=== PATIENT | female | born 1950 | race Caucasian/White ===

== ENCOUNTER → 2021-08-17 13:40 | Outpatient (CLI) | payer MEDICARE, BC, SELFPAY ==
--- NOTE | 2021-08-17 | DI.CT.S_ITS ---
PROCEDURE: CT SINUS SCREEN WO CON INDICATIONS: Chronic pansinusitis TECHNIQUE: Noncontrast 3.0 mm axial images acquired from the frontal sinuses to the mid-sella, with coronal and sagittal reformats. For radiation dose reduction, the following was used: automated exposure control, adjustment of mA and/or kV according to patient size. COMPARISON: None. FINDINGS: Image quality: Excellent. Sinuses: Sinuses are clear. No mucocele/mucous retention cysts or fluid levels. Ostiomeatal Complexes: Ostiomeatal complexes are patent. No Janet cells. Miscellaneous: Visualized intra-orbital contents are normal. There is aeration of the vertical marlon of the left middle turbinate. Paradoxical left middle turbinate is also noted. Prominent leftward nasal septal deviation. IMPRESSION: Sinuses are clear. Dictated by: Gladis Vazquez M.D. on 08/17/2021 at 15:38 Approved by: Gladis Vazquez M.D. on 08/17/2021 at 16:31
== END ==
PROVIDERS: PCP Student in an Organized Health Care Education/Training Program; Referring Provider Otolaryngology; Visit Provider Otolaryngology
DX: J32.4 Chronic pansinusitis (principal)
CPT/HCPCS: 70486

== ENCOUNTER → 2023-07-15 15:41 | Outpatient (CLI) | payer MEDICARE, BC, SELFPAY ==
--- NOTE | 2023-07-15 | DI.MRI.S_ITS ---
PROCEDURE: MR HAND LT WO CON INDICATIONS: PAIN IN LEFT THUMB TECHNIQUE: Noncontrast oblique coronal T1 spin echo and T2 fast spin echo with fat saturation, axial and sagittal T2 fast spin echo with fat saturation, through the thumb. COMPARISON: [facility] [place], CR, XR HAND 3+ VIEWS LEFT, 07/11/2023, 9:12. [facility], CR, XR HAND 3+ VIEWS LEFT, 06/24/2023, 14:02. FINDINGS: Image quality: Excellent. Bones: There is significant marrow edema involving volar aspect of 1st metacarpal head and distal shaft. Marrow edema is noted throughout 1st proximal phalanx and involving dorsal aspect of 5th distal phalangeal base. There is suggestion of avulsion fracture involving ulnar aspect of 1st proximal phalangeal base. Slight dorsal subluxation at 1st MCP joint is noted. No other fracture or dislocation is seen. Significant soft tissue swelling surrounding 1st MCP joint and interphalangeal joint is seen. Osteoarthritic changes are noted throughout left thumb. Soft tissue swelling and edema surrounding mid to distal portion of left thumb is seen. No drainable fluid collection. First carpometacarpal joint: On sagittal images, the dorsal radial ligament and posterior oblique ligament appear intact. The intermetacarpal ligament between the 1st and 2nd metacarpal bases also appears intact. On the volar aspect, the deep and superficial layers of the anterior oblique ligament appear thickened. First metacarpophalangeal joint: The proper and accessory components of the radial collateral ligament appears markedly thickened with intrasubstance T2 hyperintense signal along with overlying fibers of the abductor pollicis brevis tendon. There is suggestion of ruptured ulnar collateral ligament at its distal insertion with adjacent fluid and edema. The torn ligament is seen oriented away from the 1st MCP joint and extending over the aponeurosis of adductor pollicis muscle suggestive of a Stener lesion. There is suggestion of volar plate tear near its proximal insertion. Thenar muscles: Significant edema involving the thenar muscles is seen suggestive of muscle strain/partial-thickness tear. Flexor pollicis longus tendon: Tendon fibers appear intact, coursing between the thenar eminence muscles and the adductor pollicis muscle, and inserting on the volar base of the distal phalanx. The first annular danita at the level of the first MCP joint appears intact, intimate with the sesamoids. The second annular danita at the level of interphalangeal joint also appears intact. The oblique annular danita between the 1st and 2nd annular pulleys appears intact, with ulnar proximal attachment intimate with the adductor aponeurosis. The variable annular danita also appears intact between the first annular and oblique annular pulleys. Extensor tendons: The extensor pollicis brevis tendon appears intact, coursing radial to the extensor pollicis longus tendon and inserting on the dorsal base of the proximal phalanx, blending with the dorsal plate of the first MCP joint. The extensor pollicis longus tendon appears intact as it inserts on the dorsal base of the distal phalanx. The sagittal band at the level of the first MCP joint appears intact. The abductor pollicis longus tendon slips appear intact at the radial aspect of the proximal phalanx, proximal to the abductor pollicis brevis tendon insertion. Miscellaneous: No ganglion cysts. IMPRESSION: 1. Suggestion of acute avulsion injury involving ulnar aspect of 1st proximal phalangeal base with surrounding edema. Bony contusion is noted involving 1st interphalangeal joint and 1st metacarpal head without definite fracture line. Slight dorsal subluxation at 1st MCP joint is noted. Soft tissue swelling and edema throughout left thumb particularly adjacent to 1st MCP joint. 2. Suggestion of ruptured ulnar collateral ligament of 1st MCP joint at its distal insertion with medially oriented torn UCL fibers external to aponeurosis of adductor pollicis muscle concerning for Stener lesion. 3. Low-grade sprain/partial-thickness tear involving radial collateral ligaments of 1st MCP joint. There is also suggestion of torn volar plate of 1st MCP joint at its proximal insertion. 4. [id number] thenar muscles edema suggestive of muscle strain/partial-thickness tear. Dictated by: Bryce Cuadra M.D. on 07/17/2023 at 9:48 Approved by: Bryce Cuadra M.D. on 07/17/2023 at 11:08
== END ==
PROVIDERS: PCP Student in an Organized Health Care Education/Training Program; Referring Provider Orthopaedic Surgery; Visit Provider Orthopaedic Surgery
DX: M79.645 Pain in left finger(s) (principal); S60.012A Contusion of left thumb without damage to nail, initial encounter; S63.112A Subluxation of metacarpophalangeal joint of left thumb, initial encounter; S63.642A Sprain of metacarpophalangeal joint of left thumb, initial encounter; M25.442 Effusion, left hand
CPT/HCPCS: 73218

== ENCOUNTER → 2024-06-05 | Outpatient (CLI) | payer MEDICARE, BC, SELFPAY ==
--- NOTE | 2024-06-05 14:34 | DI.ECHO.S_ITS ---
[facility]+ [facility] : : [address] : : [place] : : [id number] : : Phone: [phone] Echocardiogram Report + + :Name: MAGDALENE ZHENG Study Date: 06/05/2024 Height: 65 in : :[facility] ReadingLocation: Weight: 168 lb : : Gender: Female BSA: 1.8 m2 : :: 1950 Age: 73 yrs BP: 135/84 mmHg: :Reason For Study: DYPSNEA ON EXERTION : :Ordering Physician: CARA CUADRA Performed By: Chintan Lala : :Referring: CARA CUADRA : + + Interpretation Summary 1. The left ventricular contractility is normal. Estimate ejection fraction is greater than 55% with no segmental wall motion abnormalities. Mild concentric LVH. Grade 1 diastolic dysfunction. 2. The right ventricular contractility is normal. 3. All cardiac chambers are of normal size. 4. No significant valvular abnormalities noted. 5. No obvious intracardiac shunts. 6. No obvious intracardiac masses nor thrombi. 7. No hemodynamically significant pericardial effusion. 8. Low right-sided filling pressures. Conclusion: Normal biventricular systolic function with no significant valvular abnormalities. Procedure: A two-dimensional transthoracic echocardiogram with color flow and Doppler was performed. The study quality was technically adequate. There is no prior echocardiogram noted for this patient. The patient was in atrial fibrillation with heart rates between 65-98 bpm during the exam. Left Ventricle: The left ventricle is normal in size. The ejection fraction is estimated to be 55-60%. Right Ventricle: The right ventricle is normal size. The right ventricular systolic function is normal. Atria: The left atrial size is normal. Right atrial size is normal. The interatrial septum grossly appears intact with no obvious evidence for an atrial septal defect. Mitral Valve: The mitral valve is normal. There is no mitral valve stenosis. There is trace mitral regurgitation. Aortic Valve: The aortic valve is trileaflet. There is no aortic valve stenosis. There is trace aortic regurgitation. Tricuspid Valve: The tricuspid valve is normal. There is no tricuspid stenosis. There is a trace or physiologic amount of tricuspid regurgitation. Pulmonic Valve: The pulmonic valve is not well visualized. There is no pulmonic valvular stenosis. There is no pulmonic valvular regurgitation. Great Vessels: The aortic root is normal size. The dimensions of the ascending aorta are normal. The IVC is of normal diameter and collapses greater than 50% with a sniff. This suggests a low right atrial pressure of 3 mm Hg. Pericardium/ Pleura There is no pericardial effusion. There is no pleural effusion. MMode/2D Measurements & Calculations LVIDd: 4.7 cm LVOT diam: 2.2 cm LVIDs: 3.5 cm Ao root diam: 3.3 cm FS: 25.6 % asc Aorta Diam: 3.6 cm IVSd: 1.2 cm Ao Arch Diam (Prox Trans): 2.2 cm LVPWd: 1.1 cm LV leigh. diameter/BSA (cm/m^2): 2.5 LV sys. diameter/BSA (cm/m^2): 1.9 LA A2 area: 18.1 cm2 RA long axis: 4.7 cm LA A4 area: 16.4 cm2 RA area: 14.9 cm2 LA length (vol): 5.3 cm RA vol: 40.2 ml LA vol: 47.9 ml RA : 21.9 ml/m2 LA vol index: 26.1 ml/m2 IVC diam: 1.7 cm RVD1 (basal): 3.0 cm RVD2 (mid): 2.6 cm TAPSE: 2.4 cm Doppler Measurements & Calculations Ao V2 max: 110.1 cm/sec LVOT Max Colton: 93.7 cm/sec Ao V2 mean: 77.8 cm/sec LV V1 max P.5 mmHg Ao max P.8 mmHg LV V1 VTI: 20.1 cm Ao mean P.7 mmHg KLARISSA(I,D): 3.1 cm2 Ao V2 VTI: 24.3 cm KLARISSA(V,D): 3.1 cm2 sev ratio: 0.83 KLARISSA indexed to BSA (cm^2/m^2): 1.7 Med Peak E' Colton: 4.6 cm/sec PA V2 max: 70.9 cm/sec Lat Peak E' Colton: 5.4 cm/sec PA V2 mean: 54.4 cm/sec PA mean P.2 mmHg PA pr(Accel): 25.9 mmHg SV(LVOT): 74.1 ml Reading Physician:
== END ==
PROVIDERS: PCP Nurse Practitioner Family; Referring Provider Internal Medicine; Visit Provider Internal Medicine
DX: R06.09 Other forms of dyspnea (principal)
CPT/HCPCS: 93306

== ENCOUNTER → 2024-06-08 15:04 | Outpatient (CLI) | payer MEDICARE, BC, SELFPAY ==
--- NOTE | 2024-06-08 15:05 | DI.NM.S_ITS ---
PROCEDURE: NM EXERCISE TREADMILL NON NUC COMPARISON: None. INDICATIONS: CAMACHO FINDINGS: Patient exercised per the standard Jaun protocol. Total exercise time was 7 minutes 9 seconds. Test was terminated secondary to fatigue. Maximal heart rate was 130 bpm which is 90% of max impacted heart rate. Maximum blood pressure 132/[place] [address]. HUYEN -34%. 7.2 METs. No ischemic changes noted. Frequent PVCs noted throughout the entire stress test. PVC burden did not increase with stress. No ventricular dysrhythmias noted. No chest pains voiced. Normal heart rate and blood pressure response to exercise. IMPRESSION: 1. Negative exercise treadmill stress test in terms of ischemia. 2. Frequent PVCs. 3. Above average exercise tolerance. Dictated by: Wili Cuadra M.D. on 06/08/2024 at 16:05 Approved by: Wili Cuadra M.D. on 06/08/2024 at 16:07
== END ==
LOC: DI 15:05
PROVIDERS: PCP Nurse Practitioner Family; Referring Provider Internal Medicine; Visit Provider Internal Medicine
DX: I49.3 Ventricular premature depolarization (principal); R06.09 Other forms of dyspnea
CPT/HCPCS: 93017

== ENCOUNTER 2024-10-18 12:31 | Day surgery (SDC) | payer MEDICARE, BC, SELFPAY ==
[2024-10-11 12:34] VITALS: BMI 27.3
[2024-10-18 12:49] VITALS: BP 127/84; PULSE 62; RESP 18; TEMP 36.7; O2SAT 99; BMI 27.4
[2024-10-18] MEDS: ACETAMINOPHEN 325 MG TABLET 650 MG PO (13:03)
[2024-10-18] MEDS: OXYMETAZOLINE NASAL SPRAY 30 ML 2 SPRAYS NASAL (13:04)
[2024-10-18] MEDS: LACTATED RINGERS 1,000 ML 42 ML IV (13:04)
--- NOTE | 2024-10-18 13:45 | P.HP_ITS ---
History of Present Illness History of Present Illness Date Patient Seen: 10/18/24 Time Patient Seen: 13:45 Chief complaint: SDC Narrative: 74-year-old female last seen in clinic 08/06/2024 presents for scheduled septoplasty and inferior turbinate reduction. Recent URI approximately 2 weeks ago but feels entirely back to baseline. She did receive cardiac clearance with low cardiac risk 08/07/2024. Recent ECG did not show atrial flutter. [facility] Medical History Chronic sinusitis Insomnia Osteoarthritis of right knee HLD (hyperlipidemia) GERD (gastroesophageal reflux disease) Seasonal depression Migraine Hypothyroid PVC's (premature ventricular contractions) Social History household members: spouse Smoking Status: Never smoker Meds Home Medications and Allergies Home Medications Medication Instructions Recorded Confirmed Type cetirizine 10 mg capsule 10 mg PO DAILY 10/11/24 10/18/24 History doxylamine succinate 25 mg tablet 25 mg PO BEDTIME 10/11/24 10/18/24 History (Unisom (doxylamine)) escitalopram oxalate 10 mg tablet 10 mg PO DAILY 10/11/24 10/18/24 History fluticasone propionate 50 1 spray intranasal DAILY 10/11/24 10/18/24 History mcg/actuation nasal spray,suspension levothyroxine 100 mcg tablet 100 mcg PO DAILY 10/11/24 10/18/24 History omeprazole 20 mg capsule,delayed 20 mg PO DAILY 10/11/24 10/18/24 History release sumatriptan succinate 50 mg tablet 50 mg PO PRN PRN migrane 10/11/24 10/11/24 History Allergies Allergy/AdvReac Type Severity Reaction Status Date / Time No Known Drug Allergies Allergy Verified 10/18/24 12:43 Review of Systems Review of Systems Narrative: Negative except as listed in the HPI Exam Vital Signs (past 8 hours): - 10/18/24 12:49 Temperature 98.0 F Pulse Rate 62 Respiratory Rate 18 Blood Pressure 127/84 Pulse Oximetry 99 Oxygen Delivery Method Room Air Oxygen Delivery Method Room Air Narrative Exam Narrative: Well-developed well-nourished, heart regular rate and rhythm without murmur, lungs clear to auscultation bilaterally Assessment & Plan Assessment & Plan narrative: Assessment: Nasal airway obstruction, septal deviation, inferior turbinate hypertrophy Plan: Following discussion of the material risks benefits complications and alternatives, the patient elected to proceed. Time-Based Coding :: [TOTAL MINUTES] spent with patient and on the chart (including review of chart, obtaining history, exam, reviewing outside data, placing orders, documenting exam and treatment plan, and counseling patient) on [DATE].
--- NOTE | 2024-10-18 13:45 | PM.PREOP ---
Pre-operative Note Interval Note History & Physical reviewed/Exam performed by Physician: Yes Changes to H&P: No
--- NOTE | 2024-10-18 13:47 | PM.OP.1 ---
Operative Date/Time/Diagnoses Date of procedure: 10/18/24 Time of procedure: 15:17 Pre-op diagnosis: Nasal airway obstruction, septal deviation, inferior turbinate hypertrophy Post-op diagnosis: same Procedure & Clinicians Procedure: 1. Septoplasty 2. Bilateral inferior turbinate reduction via intramural cautery Same procedure as scheduled: Yes Indications: 74 Year old with the above diagnoses incompletely managed with medical therapy presents for the above procedure. Following discussion of the material risks benefits complications and alternatives, the patient elected to proceed. Surgeon: Juan Francisco Martinez Click Yes if Unassisted: Yes Anesthesia Type: General and Local Operative Notes Findings: 2+ left septal deviation, [id number]-left inferior turbinate hypertrophy Estimated Blood Loss (mL): 30 Procedure in detail: Following identification and confirmation of consent as well as preoperative Afrin nasal spray, the patient was brought to the operating room suite and placed in the supine position. General endotracheal anesthesia was administered. I infiltrated the septum widely bilaterally with 1% lidocaine 1 100,000 epinephrine followed by temporary packing with cotton with Afrin and 4% lidocaine. Following sterile prep and drape, the packing was removed and I performed a right elana-transfixion incision, elevated the right mucoperichondrial and mucoperiosteal flap. I disarticulated near the bony/cartilaginous junction and elevated the left mucoperiosteal flap. Deviated portions of the perpendicular plate of the ethmoid and vomer were resected. The residual quadrilateral cartilage was further straightened by trimming it inferiorly as well as reducing the maxillary crest. A 2 mm strip of cartilage paralleling the residual 1 cm dorsal and caudal strut was resected to further straighten the quadrilateral cartilage. The hemitransfixion incision was closed with interrupted 5 0 chromic followed by a running 4 0 plain gut mattress suture to reapproximate the septal flaps. At case completion, 20/1000th of an inch silastic splints were placed bilaterally, sutured anteriorly with a single 4 0 nylon. The head of each inferior turbinate had been previously infiltrated with additional local anesthetic and a 25 gauge spinal needle was used to impale the length of the turbinate, with cautery on a setting of 15 activated on slow withdrawal over 2 passes. The turbinates were then outfractured. The procedure completed, sponge and needle counts were correct and the patient was extubated in the operating room and taken to recovery room in stable condition without known complication. Postoperative care: Nasal saline every hour while awake, Polysporin to the nostrils at all times, begin irrigations t.i.d. beginning pod 1. Humidifier at the bedside blowing on the face. Tylenol alternating with Advil for pain control, oxycodone if necessary for breakthrough pain. Complications: none Post-operative Condition: stable Disposition: same day surgery Plan for aftercare: Nasal saline every hour while awake, begin irrigations t.i.d. tomorrow if desired. Polysporin to the nostrils at all times, Tylenol alternating with Advil for pain control, oxycodone for breakthrough pain. Elevate head of bed, no nose blowing, no straining for 2 weeks. Ice directly under the nose on the upper lip has tolerated 24-48 hours at a minimum. Follow-up in 1 week for nasal splint removal.
--- NOTE | 2024-10-18 14:24 | SUR.OPER ---
Supine on padded OR bed, head on pillow, arms padded and tucked at sides, legs uncrossed, safety belt at thigh, tape over blanket over lower legs .
[2024-10-18] MEDS: LIDOCAINE 1% W/EPI 20ML 20 ML INJ (14:53)
[2024-10-18] MEDS: LIDOCAINE 4% SOLN 50 ML 20 ML TOP (14:55)
[2024-10-18] MEDS: BACITRACIN OINT 0.9 GM PCKT 1 APPLIC TOP (14:59)
[2024-10-18 15:27] VITALS: BP 112/54; PULSE 86; RESP 16; TEMP 36.1; O2SAT 93
[2024-10-18 15:32] VITALS: BP 105/58; PULSE 82; RESP 13; O2SAT 91
[2024-10-18 15:36] VITALS: BP 108/54; PULSE 79; RESP 12; O2SAT 94
--- NOTE | 2024-10-18 15:36 | SUR.OPER ---
Bleeding noted on nasal dressing after case complete. Dr. Martinez aware and applied more Afrin to bilateral nasal passage. Dressing changed, gauze 2x2 and tape. Handoff given to PACU, RN. All questions and concerns addressed at this time.
[2024-10-18 15:43] VITALS: BP 109/60; PULSE 83; RESP 15; TEMP 36.1; O2SAT 93
[2024-10-18 16:10] VITALS: BP 110/60; PULSE 83; RESP 16; TEMP 36.7; O2SAT 95
== END 2024-10-18 16:14 | disposition home or self-care (01) ==
PROVIDERS: PCP Nurse Practitioner Family; Referring Provider Otolaryngology; Visit Provider Otolaryngology
PROC: (CPT 30520; principal; 2024-10-18 13:30)
DX: J34.89 Other specified disorders of nose and nasal sinuses (principal); J34.2 Deviated nasal septum; J34.3 Hypertrophy of nasal turbinates; K21.9 Gastro-esophageal reflux disease without esophagitis; E03.9 Hypothyroidism, unspecified; R94.31 Abnormal electrocardiogram [ECG] [EKG]
CPT/HCPCS: 30520; 30802; J1100; J2405; J2704; J3010